=== PATIENT | male | born 1980 | race Caucasian/White ===

== ENCOUNTER 2017-11-11 14:56 | Inpatient (IN) | payer OTHER, BC ==
[2017-11-11 17:48] LABS: BASO % 0.3 % (0.0-1.0); EOS # 0.1 10^3/uL (0.0-0.50); EOS % 0.8 % (0.0-3.0); HEMATOCRIT 44.9 % (42.0-52.0); HEMOGLOBIN 15.7 g/dl (14.0-18.0); IMMATURE GRANULOCYTE % 0.5 % (0-3.0); LYMPH # 2.1 10^3/uL (1.5-4.5); LYMPH % 15.2 % (24.0-44.0); MEAN CORPUSCULAR HEMOGLOBIN 31.5 pg (27.0-33.0); MEAN CORPUSCULAR VOLUME 90.2 fl (80.0-96.0); MONO # 1.3 10^3/uL (0.0-0.8); MONO % 9.1 % (0.0-5.0); NEUTROPHILS # 10.2 10^3/uL (1.8-7.7); NEUTROPHILS % 74.1 % (36.0-66.0); PLATELET COUNT, AUTOMATED 248 10^3/uL (150-450); RED BLOOD COUNT 4.98 10^6/uL (4.30-6.10); RED CELL DISTRIBUTION WIDTH 12.7 % (11.5-14.5); WHITE BLOOD COUNT 13.8 10^3/uL (4.0-10.0)
[2017-11-11 18:07] LABS: ANION GAP 7 MEQ/L (8-16); BLOOD UREA NITROGEN 13 MG/DL (7-18); C REACTIVE PROTEIN QUANTITATIV 3.09 MG/DL (0.00-0.30); CALCIUM LEVEL 9.1 MG/DL (8.5-10.1); CARBON DIOXIDE LEVEL 27 MEQ/L (21-32); CHLORIDE LEVEL 106 MEQ/L (98-107); CREATININE FOR GFR 0.82 MG/DL (0.70-1.30); GLOMERULAR FILTRATION RATE > 60.0 (>60); GLUCOSE, FASTING 103 MG/DL (70-100); SODIUM LEVEL 140 MEQ/L (136-145)
[2017-11-11 18:11] LABS: LACTIC ACID SEPSIS PROTOCOL 1.9 MMOL/L (0.4-2.0)
[2017-11-11] MEDS ORDERED: PERCOCET 5MG/325MG TAB PO (18:15)
[2017-11-11] MEDS ORDERED: ONDANSETRON 4MG/2ML VIAL (J2405) IV (18:15)
[2017-11-11 18:31] LABS: ERYTHROCYTE SEDIMENTATION RATE 14 mm/hr (0-15)
[2017-11-11] MEDS: PERCOCET 5MG/325MG TAB PO (18:59)
[2017-11-11] MEDS: PIPERACILLIN/TAZOBACTAM SOD 3.375 GM in APPROPRIATE DILUENT 1 EA IV (18:59)
[2017-11-11] MEDS: NICOTINE 21MG/24HR 1 EA TRANSDERMAL TD (20:30)
[2017-11-11] MEDS: SENOKOT S TAB PO (20:30)
[2017-11-11] MEDS: VANCOMYCIN HCL 1,000 MG, VIAL MATE ADAPTER 1 EACH in D5W 250 ML IV (20:31)
[2017-11-11] MEDS: ENOXAPARIN 40 MG/0.4 ML SYRINGE (J1650) SC (21:54)
[2017-11-11] MEDS: NS 1,000 ML IV (23:22)
[2017-11-11] MEDS: ACETAMINOPHEN TAB 650MG DOSE (2X325MG) PO (23:22)
[2017-11-12] MEDS: PIPERACILLIN/TAZOBACTAM SOD 3.375 GM in APPROPRIATE DILUENT 1 EA IV ×4 (01:41→19:47)
[2017-11-12] MEDS: VANCOMYCIN HCL 1,000 MG, VIAL MATE ADAPTER 1 EACH in D5W 250 ML IV ×3 (04:30→21:41)
[2017-11-12] MEDS: PERCOCET 5MG/325MG TAB PO ×2 (04:30→11:07)
[2017-11-12 05:39] LABS: HEMATOCRIT 42.7 % (42.0-52.0); MEAN CORPUSCULAR HEMOGLOBIN 31.8 pg (27.0-33.0); MEAN CORPUSCULAR HGB CONC 35.1 g/dl (32.0-36.5); MEAN CORPUSCULAR VOLUME 90.7 fl (80.0-96.0); PLATELET COUNT, AUTOMATED 243 10^3/uL (150-450); RED BLOOD COUNT 4.71 10^6/uL (4.30-6.10); RED CELL DISTRIBUTION WIDTH 12.5 % (11.5-14.5); WHITE BLOOD COUNT 11.6 10^3/uL (4.0-10.0)
[2017-11-12 06:19] LABS: ANION GAP 5 MEQ/L (8-16); BLOOD UREA NITROGEN 15 MG/DL (7-18); C REACTIVE PROTEIN QUANTITATIV 3.38 MG/DL (0.00-0.30); CALCIUM LEVEL 8.4 MG/DL (8.5-10.1); CARBON DIOXIDE LEVEL 26 MEQ/L (21-32); CHLORIDE LEVEL 106 MEQ/L (98-107); CREATININE FOR GFR 0.79 MG/DL (0.70-1.30); GLOMERULAR FILTRATION RATE > 60.0 (>60); GLUCOSE, FASTING 110 MG/DL (70-100); MAGNESIUM LEVEL 2.2 MG/DL (1.8-2.4); POTASSIUM SERUM 4.2 MEQ/L (3.5-5.1); SODIUM LEVEL 137 MEQ/L (136-145)
[2017-11-12] MEDS: SENOKOT S TAB PO ×2 (08:08→21:00)
[2017-11-12] MEDS: NS 1,000 ML IV ×2 (14:00→21:37)
[2017-11-12] MEDS ORDERED: LIDOCAINE 2% INJ 100 MG/5 ML SDV (FOR ANES.) As Ordered (14:12)
[2017-11-12] MEDS ORDERED: PROPOFOL 200 MG/20 ML VIAL As Ordered ×2 (14:12→14:46)
[2017-11-12] MEDS ORDERED: MIDAZOLAM INJ 2 MG/2 ML VIAL (J2250) As Ordered (14:16)
[2017-11-12] MEDS ORDERED: fentaNYL 100 MCG/2 ML INJECTION (J3010) As Ordered (14:17)
[2017-11-12] MEDS ORDERED: ZOSYN 3.375 GM VIAL (J2543) As Ordered (14:46)
[2017-11-12] MEDS ORDERED: VANCOMYCIN 1000 MG/20 ML VIAL (J3370) As Ordered (14:46)
[2017-11-12] MEDS: BUPIVACAINE HCL 0.5% 30 ML VIAL As Ordered (15:14)
[2017-11-12] MEDS: LIDOCAINE 2% MDV 20 ML VIAL As Ordered (15:14)
[2017-11-12] MEDS: BACITRACIN PWD 50,000 UNITS VIAL As Ordered (15:32)
[2017-11-12] MEDS: GENTAMICIN SULF INJ 80MG/2ML VIAL (J1580) As Ordered (15:33)
[2017-11-12] MEDS: LR 1,000 ML IV (16:30)
[2017-11-12] MEDS ORDERED: ONDANSETRON 4MG/2ML VIAL (J2405) IV (16:30)
[2017-11-12] MEDS ORDERED: fentaNYL 100 MCG/2 ML INJECTION (J3010) IV (16:30)
[2017-11-12] MEDS ORDERED: NORCO, ANEXSIA 5/325MG TABLET (HYDROcodone/ACETAMINOPHEN) PO (16:30)
[2017-11-12] MEDS: ACETAMINOPHEN TAB 650MG DOSE (2X325MG) PO ×2 (18:29→23:39)
[2017-11-12 20:43] LABS: VANCOMYCIN LEVEL TROUGH 9.3 UG/ML (10.0-20.0)
[2017-11-12] MEDS: NICOTINE 21MG/24HR 1 EA TRANSDERMAL TD (21:42)
[2017-11-12] MEDS: ENOXAPARIN 40 MG/0.4 ML SYRINGE (J1650) SC (21:42)
[2017-11-12] MEDS: VANCOMYCIN HCL 500 MG in D5W MINI-BAG PLUS 100 ML IV (23:35)
[2017-11-13] MEDS: PIPERACILLIN/TAZOBACTAM SOD 3.375 GM in APPROPRIATE DILUENT 1 EA IV ×4 (01:08→20:04)
[2017-11-13] MEDS: VANCOMYCIN HCL 1,000 MG, VIAL MATE ADAPTER 1 EACH in D5W 250 ML IV ×3 (04:35→21:00)
[2017-11-13] MEDS: ACETAMINOPHEN TAB 650MG DOSE (2X325MG) PO ×4 (04:36→18:00)
[2017-11-13 05:48] LABS: HEMATOCRIT 41.4 % (42.0-52.0); HEMOGLOBIN 14.2 g/dl (14.0-18.0); MEAN CORPUSCULAR HEMOGLOBIN 30.9 pg (27.0-33.0); MEAN CORPUSCULAR HGB CONC 34.3 g/dl (32.0-36.5); PLATELET COUNT, AUTOMATED 251 10^3/uL (150-450); RED CELL DISTRIBUTION WIDTH 12.5 % (11.5-14.5); WHITE BLOOD COUNT 11.9 10^3/uL (4.0-10.0)
[2017-11-13 06:02] LABS: ANION GAP 5 MEQ/L (8-16); BLOOD UREA NITROGEN 12 MG/DL (7-18); C REACTIVE PROTEIN QUANTITATIV 3.27 MG/DL (0.00-0.30); CALCIUM LEVEL 8.3 MG/DL (8.5-10.1); CARBON DIOXIDE LEVEL 27 MEQ/L (21-32); CHLORIDE LEVEL 107 MEQ/L (98-107); CREATININE FOR GFR 0.78 MG/DL (0.70-1.30); GLOMERULAR FILTRATION RATE > 60.0 (>60); GLUCOSE, FASTING 110 MG/DL (70-100); SODIUM LEVEL 139 MEQ/L (136-145)
[2017-11-13] MEDS: SENOKOT S TAB PO ×2 (09:52→20:04)
[2017-11-13] MEDS: INFLUENZA QUADRIVALENT PF VACCINE 0.5ML SYRINGE (90686) IM (09:53)
[2017-11-13] MEDS: NS 1,000 ML IV (13:54)
[2017-11-13] MEDS: NICOTINE 21MG/24HR 1 EA TRANSDERMAL TD (20:04)
[2017-11-13] MEDS: ENOXAPARIN 40 MG/0.4 ML SYRINGE (J1650) SC (20:04)
[2017-11-13] MEDS: PERCOCET 5MG/325MG TAB PO (22:22)
[2017-11-14] MEDS: zolPIDEM TARTRATE 5 MG TAB PO ×2 (00:39→20:34)
[2017-11-14] MEDS: PIPERACILLIN/TAZOBACTAM SOD 3.375 GM in APPROPRIATE DILUENT 1 EA IV ×4 (01:00→18:12)
[2017-11-14] MEDS: NS 1,000 ML IV (01:55)
[2017-11-14] MEDS: ACETAMINOPHEN TAB 650MG DOSE (2X325MG) PO ×3 (04:43→16:46)
[2017-11-14] MEDS: VANCOMYCIN HCL 1,000 MG, VIAL MATE ADAPTER 1 EACH in D5W 250 ML IV ×3 (04:44→20:35)
[2017-11-14 07:18] LABS: HEMATOCRIT 42.7 % (42.0-52.0); HEMOGLOBIN 14.9 g/dl (14.0-18.0); MEAN CORPUSCULAR HEMOGLOBIN 31.5 pg (27.0-33.0); MEAN CORPUSCULAR HGB CONC 34.9 g/dl (32.0-36.5); MEAN CORPUSCULAR VOLUME 90.3 fl (80.0-96.0); PLATELET COUNT, AUTOMATED 244 10^3/uL (150-450); RED BLOOD COUNT 4.73 10^6/uL (4.30-6.10); RED CELL DISTRIBUTION WIDTH 12.2 % (11.5-14.5); WHITE BLOOD COUNT 9.2 10^3/uL (4.0-10.0)
[2017-11-14 07:53] LABS: ANION GAP 6 MEQ/L (8-16); BLOOD UREA NITROGEN 12 MG/DL (7-18); C REACTIVE PROTEIN QUANTITATIV 2.47 MG/DL (0.00-0.30); CALCIUM LEVEL 8.3 MG/DL (8.5-10.1); CARBON DIOXIDE LEVEL 25 MEQ/L (21-32); CHLORIDE LEVEL 109 MEQ/L (98-107); CREATININE FOR GFR 0.77 MG/DL (0.70-1.30); GLOMERULAR FILTRATION RATE > 60.0 (>60); GLUCOSE, FASTING 106 MG/DL (70-100); MAGNESIUM LEVEL 2.2 MG/DL (1.8-2.4); POTASSIUM SERUM 4.2 MEQ/L (3.5-5.1); SODIUM LEVEL 140 MEQ/L (136-145)
[2017-11-14] MEDS: SENOKOT S TAB PO ×2 (08:14→20:34)
[2017-11-14] MEDS ORDERED: zolPIDEM TARTRATE 10MG TAB PO (13:00)
[2017-11-14] MEDS: ENOXAPARIN 40 MG/0.4 ML SYRINGE (J1650) SC (20:35)
[2017-11-14] MEDS: NICOTINE 21MG/24HR 1 EA TRANSDERMAL TD (20:35)
[2017-11-15] MEDS: PIPERACILLIN/TAZOBACTAM SOD 3.375 GM in APPROPRIATE DILUENT 1 EA IV ×2 (00:06→06:52)
[2017-11-15 04:53] LABS: HEMATOCRIT 42.3 % (42.0-52.0); HEMOGLOBIN 14.8 g/dl (14.0-18.0); MEAN CORPUSCULAR VOLUME 88.5 fl (80.0-96.0); PLATELET COUNT, AUTOMATED 263 10^3/uL (150-450); RED BLOOD COUNT 4.78 10^6/uL (4.30-6.10); RED CELL DISTRIBUTION WIDTH 12.1 % (11.5-14.5); WHITE BLOOD COUNT 6.8 10^3/uL (4.0-10.0)
[2017-11-15] MEDS: VANCOMYCIN HCL 1,000 MG, VIAL MATE ADAPTER 1 EACH in D5W 250 ML IV (05:06)
[2017-11-15 05:14] LABS: ANION GAP 5 MEQ/L (8-16); BLOOD UREA NITROGEN 14 MG/DL (7-18); CALCIUM LEVEL 8.7 MG/DL (8.5-10.1); CARBON DIOXIDE LEVEL 28 MEQ/L (21-32); CHLORIDE LEVEL 107 MEQ/L (98-107); CREATININE FOR GFR 0.76 MG/DL (0.70-1.30); GLOMERULAR FILTRATION RATE > 60.0 (>60); GLUCOSE, FASTING 85 MG/DL (70-100); MAGNESIUM LEVEL 2.2 MG/DL (1.8-2.4); POTASSIUM SERUM 3.6 MEQ/L (3.5-5.1); SODIUM LEVEL 140 MEQ/L (136-145); VANCOMYCIN LEVEL TROUGH 12.2 UG/ML (10.0-20.0)
[2017-11-15] MEDS: SENOKOT S TAB PO (08:35)
== END 2017-11-15 12:10 | disposition home or self-care (01) | DRG 603 ==
LOC: M PED 11-13 17:23 → M ED 14:56 → M ED INP 18:04 → M PCU 20:02
PROC: 0HDMXZZ Extraction of Right Foot Skin, External Approach (ICD-10-PCS; principal; 2017-11-12 15:00)
DX: L02.611 Cutaneous abscess of right foot (principal); L03.115 Cellulitis of right lower limb; F17.210 Nicotine dependence, cigarettes, uncomplicated; S91.341A Puncture wound with foreign body, right foot, initial encounter; W45.0XXA Nail entering through skin, initial encounter; Y92.9 Unspecified place or not applicable; Z18.10 Retained metal fragments, unspecified; B96.5 Pseudomonas (aeruginosa) (mallei) (pseudomallei) as the cause of diseases classified elsewhere; B95.8 Unspecified staphylococcus as the cause of diseases classified elsewhere; Y99.9 Unspecified external cause status; Z98.1 Arthrodesis status; Z88.5 Allergy status to narcotic agent

== ENCOUNTER → 2017-12-04 | Outpatient (CLI) | payer OTHER ==
[~2017-12-04] MED LIST: PROHANCE 279.3MG/ML 15ML VIAL (A9576) As Ordered; PROHANCE 279.3MG/ML 5ML VIAL (A9576) As Ordered
== END ==
LOC: M RAD 07:24
DX: M86.171 Other acute osteomyelitis, right ankle and foot (principal); M25.471 Effusion, right ankle; L03.115 Cellulitis of right lower limb
CPT/HCPCS: A9576

== ENCOUNTER 2017-12-05 10:30 | Day surgery (SDC) | payer OTHER ==
[2017-12-05 11:09] LABS: BASO # 0.1 10^3/uL (0.0-0.2); BASO % 0.7 % (0.0-1.0); EOS # 0.2 10^3/uL (0.0-0.50); HEMATOCRIT 46.4 % (42.0-52.0); HEMOGLOBIN 16.1 g/dl (14.0-18.0); IMMATURE GRANULOCYTE % 0.2 % (0-3.0); LYMPH # 3.1 10^3/uL (1.5-4.5); LYMPH % 32.7 % (24.0-44.0); MEAN CORPUSCULAR HEMOGLOBIN 30.9 pg (27.0-33.0); MEAN CORPUSCULAR HGB CONC 34.7 g/dl (32.0-36.5); MEAN CORPUSCULAR VOLUME 89.1 fl (80.0-96.0); MONO # 0.8 10^3/uL (0.0-0.8); MONO % 8.4 % (0.0-5.0); NEUTROPHILS # 5.3 10^3/uL (1.8-7.7); PLATELET COUNT, AUTOMATED 283 10^3/uL (150-450); RED BLOOD COUNT 5.21 10^6/uL (4.30-6.10); RED CELL DISTRIBUTION WIDTH 12.4 % (11.5-14.5); WHITE BLOOD COUNT 9.4 10^3/uL (4.0-10.0)
[2017-12-05] MEDS: LR 1,000 ML IV ×2 (11:30)
[2017-12-05 11:34] LABS: C REACTIVE PROTEIN QUANTITATIV 0.55 MG/DL (0.00-0.30)
[2017-12-05] MEDS ORDERED: MIDAZOLAM INJ 2 MG/2 ML VIAL (J2250) As Ordered ×2 (12:45)
[2017-12-05] MEDS ORDERED: fentaNYL 100 MCG/2 ML INJECTION (J3010) As Ordered ×2 (12:46)
[2017-12-05] MEDS ORDERED: ROCURONIUM BROMIDE 50 MG/5 ML VIAL As Ordered ×2 (12:49)
[2017-12-05] MEDS ORDERED: LIDOCAINE 2% INJ 100 MG/5 ML SDV (FOR ANES.) As Ordered ×2 (13:38)
[2017-12-05] MEDS ORDERED: PROPOFOL 200 MG/20 ML VIAL As Ordered ×6 (13:38→13:54)
[2017-12-05] MEDS: GENTAMICIN 80 MG in APPROPRIATE DILUENT 1 EA IV (13:45)
[2017-12-05] MEDS: GENTAMICIN SULF INJ 80MG/2ML VIAL (J1580) As Ordered ×2 (13:57)
[2017-12-05] MEDS: TOBRAMYCIN SULF 1.2 GM VIAL As Ordered ×2 (13:57)
[2017-12-05] MEDS ORDERED: METOCLOPRAMIDE INJ 10MG/2ML VIAL (J2765) IV ×2 (14:30)
[2017-12-05] MEDS ORDERED: ONDANSETRON 4MG/2ML VIAL (J2405) IV ×2 (14:30)
[2017-12-05] MEDS ORDERED: fentaNYL 100 MCG/2 ML INJECTION (J3010) IV ×2 (14:30)
[2017-12-05] MEDS ORDERED: LR 1,000 ML IV ×2 (14:30)
[2017-12-05] MEDS ORDERED: PERCOCET 5MG/325MG TAB PO ×2 (14:30)
[2017-12-05] MEDS ORDERED: KETOROLAC 30 MG/ML VIAL (J1885) IV ×2 (14:30)
== END 2017-12-05 15:26 | disposition home or self-care (01) ==
LOC: M SDC 15:26
DX: M86.8X8 Other osteomyelitis, other site (principal); Z88.5 Allergy status to narcotic agent; Z72.0 Tobacco use
CPT/HCPCS: 28112

== ENCOUNTER → 2019-12-22 | Outpatient (REF) | payer OTHER ==
[~2019-12-22] MED LIST changes: +AMOX-CLAV; +AMOX875T2 PO; +CIPR500T3 PO; +DOXY-350 PO; +IBUP-1022 PO; +IBUP1TAB6 PO; +LACT1TAB4 PO; +LEVO500T3 PO; +NICO21PAT TD; -PROHANCE 279.3MG/ML 15ML VIAL (A9576) As Ordered; -PROHANCE 279.3MG/ML 5ML VIAL (A9576) As Ordered; +[UNRECOGNIZED DRUG - OTHER] PO
[2019-12-22 19:15] LABS: BASO # 0.1 10^3/uL (0.0-0.2); BASO % 0.7 % (0.0-1.0); EOS # 0.2 10^3/uL (0.0-0.5); EOS % 1.7 % (0.0-3.0); HEMATOCRIT 45.9 % (42.0-52.0); HEMOGLOBIN 15.6 g/dl (13.5-17.5); LYMPH % 39.7 % (24.0-44.0); MEAN CORPUSCULAR VOLUME 91.3 fl (80.0-96.0); MONO # 0.9 10^3/uL (0.0-0.8); MONO % 8.4 % (0.0-5.0); NEUTROPHILS % 49.2 % (36.0-66.0); PLATELET COUNT, AUTOMATED 268 10^3/uL (150-450); RED BLOOD COUNT 5.03 10^6/uL (4.30-6.10); WHITE BLOOD COUNT 10.1 10^3/uL (4.0-10.0)
[2019-12-22 19:41] LABS: ALT/SGPT 21 U/L (12-78); BILIRUBIN,TOTAL 0.3 MG/DL (0.2-1.0); BLOOD UREA NITROGEN 17 MG/DL (7-18); CARBON DIOXIDE LEVEL 28 MEQ/L (21-32); CHLORIDE LEVEL 107 MEQ/L (98-107); CHOLESTEROL LEVEL 210 MG/DL (<200); CHOLESTEROL RISK RATIO 6.562 (<5); CREATININE FOR GFR 0.96 MG/DL (0.70-1.30); FREE T4 1.47 NG/DL (0.76-1.46); GLOMERULAR FILTRATION RATE > 60.0 (>60); GLUCOSE, FASTING 88 MG/DL (70-100); HDL CHOLESTEROL 32 MG/DL (>40); NON-HDL-C 178 MG/DL; POTASSIUM SERUM 4.3 MEQ/L (3.5-5.1); SODIUM LEVEL 142 MEQ/L (136-145); THYROID STIMULATING HORMONE 0.738 uIU/ML (0.358-3.740); TOTAL PROTEIN 7.3 GM/DL (6.4-8.2); TRIGLYCERIDES LEVEL 437 MG/DL (<150)
[2019-12-22 19:43] LABS: TOTAL 25(OH) VITAMIN D 17.4 NG/ML (30.0-100.0)
[2019-12-22 19:47] LABS: HEMOGLOBIN A1c 5.9 %
== END ==
LOC: M LAB REF 18:37
PROVIDERS: ATTEND Nurse Practitioner Family
DX: Z13.9 Encounter for screening, unspecified (principal); F17.200 Nicotine dependence, unspecified, uncomplicated; S39.012A Strain of muscle, fascia and tendon of lower back, initial encounter

== ENCOUNTER → 2020-01-14 | Outpatient (CLI) | payer OTHER ==
[~2020-01-14] MED LIST changes: +CYCL-707 PO; +D 50CAP3 PO; +GABA-843 PO; +MELO15TA28 PO; +PERC5TAB12 PO; +TRIC145T22 PO
== END ==
LOC: M LABSMTC 10:23
PROVIDERS: ATTEND Anesthesiology
DX: Z11.59 Encounter for screening for other viral diseases (principal)

== ENCOUNTER 2020-01-17 06:14 | Day surgery (SDC) | payer OTHER ==
[~2020-01-17] VITALS: Ht 190.5 cm; Wt 93.4 kg
[~2020-01-17 06:14] MED LIST changes: -PERC5TAB12 PO
[2020-01-17] MEDS ORDERED: ceFAZolin SOD 2 GM in IV 1 EA IV ONE ×2 (07:00→12:00)
[2020-01-17] MEDS ORDERED: fentaNYL 250 MCG/5 ML INJECTION (J3010) As Ordered ONE (07:13)
[2020-01-17] MEDS ORDERED: MIDAZOLAM INJ 2MG/2ML VIAL (J2250 PER 1MG) As Ordered ONE (07:14)
[2020-01-17] MEDS ORDERED: propofoL 200 MG/20 ML VIAL As Ordered ONE (07:14)
[2020-01-17] MEDS ORDERED: ONDANSETRON 4MG/2ML VIAL As Ordered ONE (07:14)
[2020-01-17] MEDS ORDERED: ROCURONIUM BROMIDE 50 MG/5 ML VIAL As Ordered ONE ×3 (07:14→08:16)
[2020-01-17] MEDS ORDERED: dexameTHASONE 4 MG/ML 1ML VIAL (J1100 PER 1MG) As Ordered ONE (07:14)
[2020-01-17] MEDS ORDERED: LIDOCAINE 2% 100MG/5ML SDV (FOR ANES.) As Ordered ONE (07:14)
[2020-01-17] MEDS ORDERED: PERCOCET 5MG/325MG TAB PO ONE (07:15)
[2020-01-17] MEDS ORDERED: LR 1,000 ML IV ONE (07:30)
[2020-01-17] MEDS ORDERED: THROMBIN SOLN 20,000 UNITS KIT As Ordered ONE (07:48)
[2020-01-17] MEDS ORDERED: BUPIVACAINE/EPIN 0.25% 30 ML VIAL As Ordered ONE (07:48)
[2020-01-17] MEDS ORDERED: TRANEXAMIC ACID 100 MG/ML 10ML VIAL As Ordered ONE (07:49)
[2020-01-17] MEDS ORDERED: EPINEPHrine INJ 1 MG/ML 1ML AMP As Ordered ONE (07:49)
[2020-01-17] MEDS ORDERED: BUPIVACAINE LIPOSOME/PF 1.3% 20ML VIAL (13.3MG/ML)(EXPAREL)(C9290 PER1MG) As Ordered ONE (07:49)
[2020-01-17] MEDS ORDERED: BUPIVACAINE HCL 0.25% 10ML VIAL As Ordered ONE (07:49)
[2020-01-17] MEDS ORDERED: BACITRACIN PWD 50,000 UNITS VIAL As Ordered ONE ×2 (07:49→07:52)
[2020-01-17] MEDS ORDERED: HYDROmorphone HCL 2 MG/ML 1ML VIAL (J1170) As Ordered ONE (08:12)
[2020-01-17] MEDS ORDERED: ACETAMINOPHEN 1000MG 100ML IV BTL (OFIRMEV) (J0131 PER 10MG) As Ordered ONE (08:14)
[2020-01-17] MEDS ORDERED: SUGAMMADEX SODIUM 500 MG/5 ML VIAL (BRIDION) As Ordered ONE (08:14)
[2020-01-17] MEDS ORDERED: PERCOCET 5MG/325MG TAB PO PRN ×3 (10:15→10:30)
[2020-01-17] MEDS ORDERED: HYDROMORPHONE HCL 0.5 MG/ 0.5 ML SYRINGE (J1170 PER 1) IV PRN ×2 (10:15→10:30)
[2020-01-17] MEDS ORDERED: LR 1,000 ML IV SCH ×2 (10:15→10:30)
[2020-01-17] MEDS ORDERED: ONDANSETRON 4MG/2ML VIAL IV PRN (10:15)
[2020-01-17] MEDS ORDERED: fentaNYL 100 MCG/2 ML INJECTION (J3010) IV PRN (10:15)
[2020-01-17 11:30] VITALS: BP 112/68
[2020-01-17 12:00] VITALS: BP 91/69
[2020-01-17] MEDS ORDERED: CelecoXIB (CeleBREX) 100 MG CAP PO ONE (12:00)
--- NOTE | 2020-01-17 12:12 | REP ---
REASON: L5-S1 microdiscectomy. Single lateral view of the lumbosacral spine was obtained. There is a probe seen posteriorly at the L4-5 level. Electronically Signed by Will Baltazar DO 01/17/2020 12:27 P
[2020-01-17 13:00] VITALS: BP 117/74
[2020-01-17 14:00] VITALS: BP 110/69
[2020-01-17 15:00] VITALS: BP 110/67
[2020-01-17] MEDS ORDERED: PERC5TAB12 PO (15:46)
[2020-01-17 16:00] VITALS: BP 121/76
--- NOTE | 2020-01-20 10:47 | RO ---
DATE OF PROCEDURE: 01/17/2020 PREOPERATIVE DIAGNOSIS: Left lower extremity radiculopathy secondary to disk extrusion at L4-5 on the left side. POSTOPERATIVE DIAGNOSIS: Left lower extremity radiculopathy secondary to disk extrusion at L4-5 on the left side. PROCEDURE PERFORMED: Left L4-5 microdiskectomy. SURGEON: Dr. Erick Rush ASSISTAN: Raffy Franz ANESTHESIA: General. ESTIMATED BLOOD LOSS: Less than 30 mL, replaced with crystalloid. COMPLICATION: No complications. INDICATIONS: Left lower extremity radiculopathy, intractable discomfort. The patient elects for operative intervention. MRI evidence of disk herniation. Previous surgery at L5-1 from the contralateral side. CONSENT: Reviewed in detail including a marina discussion of potential risks and benefits of the operative procedure. The patient wants to proceed. OPERATIVE COURSE: Identified in holding area. Site and side verified. Brought to the operating room, once anesthesia was administered, positioned on the King frame for exposure of the lumbar spine, knees slightly flexed. Sterilely prepped and draped in the usual fashion. Next, once I developer advocate were comfortable the patient's positioning, Mr. Franz infiltrated the line of the incision with 0.25% Marcaine with epinephrine. I stood on the patient's left side and I made the incision with a 10 blade knife and developed down through skin and subcuticular tissues to the posterior lumbar fascia. The posterior lumbar fascia was reflected off the spinous process of L4-5. Dissection continued down to the lamina of L4 and L5. A divot was drilled in the posterior lamina. A probe was placed in the divot. A cross-table lateral x-ray was taken to verify level. Next, once this was accomplished, Leksells were utilized to remove posterior lamina and the operating microscope was draped and brought in. Mr. Franz utilized right-sided oculars on the scope, I the left-sided oculars. This facilitated safe use of the high-speed bur. Mr. Franz utilized the suction Ksenia and the suction devices to assist. Next, the high-speed bur was utilized to implement the left unilateral laminotomy extending to the bare area of 4 inferiorly and the bare area of 5. The ligamentum flavum was elevated and removed. The thecal sac was directly visualized. Randolph Macias was utilized to sweep the traversing fifth nerve root and I identified a large disk extrusion actually bigger than it appeared on the MRI. This disk extrusion with was associated with an annular tear I was able to remove the disk extrusion and explore the disk space using a Flores and regular pituitary. Next, I explored the area with the Randolph Jose to ensure there was no additional fragments of disk material. Irrigation was accomplished. Bipolar cautery was utilized for hemostasis as well as thrombin Gelfoam which was removed at the conclusion of the case. Next, all retractors were removed. The posterior lumbar fascia was reapproximated with interrupted stitch and the dermis with interrupted stitch. Pernio dressing on the skin. The patient extubated and moved to the recovery room in good condition and, in fact, voicing improvement in the leg symptoms in the recovery room. Mr. Franz was present and participated in the entirety of the case.
== END 2020-01-17 18:03 | disposition home or self-care (01) ==
LOC: M SDC 06:14 → M MS5PR 11:05 → M SDC 18:03
PROVIDERS: ATTEND Orthopaedic Surgery
DX: M51.26 Other intervertebral disc displacement, lumbar region (principal); Z88.5 Allergy status to narcotic agent; E78.5 Hyperlipidemia, unspecified; F17.218 Nicotine dependence, cigarettes, with other nicotine-induced disorders; Z79.899 Other long term (current) drug therapy
CPT/HCPCS: 36415; 63030; 72100; 86850; 86900; 86901; 88304; 96365; C9290; J0131; J0690; J1100; J1170; J2250; J2405; J3010

== ENCOUNTER → 2021-05-11 | Outpatient (CLI) | payer OTHER ==
[~2021-05-11] MED LIST changes: +GABA-282 PO; -GABA-843 PO; +PERC5TAB12 PO
--- NOTE | 2021-05-11 16:47 | REP ---
INDICATION: IMPINGEMENT SYNDROME LT SHOULDER. COMPARISON: None. TECHNIQUE: Coronal oblique T1 and fat suppressed T2. Sagittal oblique fat suppressed T2. Axial [id number] and T2 FLASH. FINDINGS: There is moderate hypertrophic degenerative change seen involving the acromioclavicular joint. T2 hyper signal is seen within and on both sides of the AC joint the acromion process is type 2. T2 hyper signal is seen in the soft tissue surrounding the acromioclavicular joint. Mild to moderate patchy and linear T2 hyper signal is seen in the supraspinatus tendon without evidence of supraspinatus musculotendinous retraction or muscular atrophy. Normal appearing low signal is seen throughout the subscapularis, infraspinatus, and teres minor tendons. The biceps tendon resides within the bicipital groove. There is no glenohumeral joint effusion. There is a tiny amount of fluid in the subcoracoid recess. There is no evidence of abnormal cortical humeral or coracoacromial ligamentous thickening. No gross labral signal changes are identified. IMPRESSION: 1. Edema within, on both sides, and surrounding the acromioclavicular joint likely secondary to overuse or trauma. 2. Mild supraspinatus tendinitis/tendinosis. 3. Other findings as described above. <Electronically signed by Will Baltazar > 05/11/21 [id number]
== END ==
LOC: M PLAIMG 15:41
PROVIDERS: ATTEND Physician Assistant
DX: M75.42 Impingement syndrome of left shoulder (principal)

== ENCOUNTER → 2021-10-05 | Outpatient (CLI) | payer OTHER ==
[~2021-10-05] MED LIST changes: -LEVO500T3 PO; +LEVO500T4 PO
[2021-10-05 17:27] LABS: INR 0.94; PARTIAL THROMBOPLASTIN TIME 34.6 SECONDS (25.9-37.0)
[2021-10-05 17:29] LABS: PLATELET COUNT, AUTOMATED 268 10^3/uL (150-450)
== END ==
LOC: M WUC 15:33
PROVIDERS: ATTEND Orthopaedic Surgery
DX: M54.16 Radiculopathy, lumbar region (principal)